=== PATIENT | male | born 1985 | race American Indian/Alaskan Native ===

== ENCOUNTER 2017-06-01 10:10 | Emergency (ER) | payer SELFPAY ==
[2017-06-01 11:03] VITALS: BP 167/89
== END 2017-06-01 12:25 | disposition left against medical advice (07) ==
LOC: ED 10:10
DX: M54.9 Dorsalgia, unspecified (principal); Z53.21 Procedure and treatment not carried out due to patient leaving prior to being seen by health care provider; W19.XXXA Unspecified fall, initial encounter; Y93.89 Activity, other specified; Y99.8 Other external cause status; Y92.89 Other specified places as the place of occurrence of the external cause

== ENCOUNTER 2018-08-13 18:48 | Emergency (ER) | payer OTHER ==
[2018-08-13 19:27] VITALS: BP 144/91
--- NOTE | 2018-08-13 19:28 | Event Note ---
ED Screening Note ED Screening Note: FOLLICULITIS L FAW NODE UP R MIKA- FOR A WHILE PSH HERNIA RX NONE PMH NONE STOPPED SMOKING 2 M AGO This initial assessment/diagnostic orders/clinical plan/treatment(s) is/are subject to change based on patients health status, clinical progression and re- assessment by fellow clinical providers in the ED. Further treatment and workup at subsequent clinical providers discretion. Patient/guardian urged not to elope from the ED as their condition may be serious if not clinically assessed and managed. Initial orders include:
[2018-08-13 19:45] LABS: Hemoglobin 13.9 gm/dl (11.8-15.2); Mean Corpuscular HGB Conc 34 % (32-34); Mean Corpuscular Volume 95 fl (84-94); Platelet Count 204 K/mm3 (140-440); Red Cell Distribution Width 15.3 % (13.2-15.2)
[2018-08-13] MEDS ORDERED: TYLENOL PO ONE (20:10)
[2018-08-13 20:41] LABS: BUN/Creatinine Ratio 12; Blood Urea Nitrogen 16 mg/dL (9-20); Calcium 9.3 mg/dL (8.4-10.2); Hemolysis Index 10
[2018-08-13] MEDS ORDERED: XYLOCAINE 1% MPF 5 mL ONE (21:09)
--- NOTE | 2018-08-13 21:24 | Emergency Department Report ---
Abscess Boil HPI - HPI Chief Complaint: Skin/Abscess/Foreign Body Stated Complaint: JAW SWELLING Time Seen by Provider: 08/13/18 19:25 Duration: 2 Days Location: Head Severity: Moderate History: Yes Pain, No Fever, No Purulent Drainage, No Numbness, No Foreign Body, No Previous History, No Insect Bite HPI: left chin abscess less than 1 cm Home Medications: Previous Rx's Medication Instructions Recorded Last Taken Type cephALEXin [Keflex] 500 mg PO Q8HR 7 Days #21 cap 08/13/18 Unknown Rx traMADol [Ultram] 50 mg PO Q6HR PRN #12 tablet 08/13/18 Unknown Rx Allergies/Adverse Reactions: Allergies Allergy/AdvReac Type Severity Reaction Status Date / Time No Known Allergies Allergy Verified 08/13/18 18:51 ED Review of Systems ROS: Stated complaint: JAW SWELLING Other details as noted in HPI Constitutional: denies: chills, fever Eyes: denies: eye pain, eye discharge, vision change ENT: denies: ear pain, throat pain Respiratory: denies: cough, shortness of breath, wheezing Cardiovascular: denies: chest pain, palpitations Endocrine: no symptoms reported Gastrointestinal: denies: abdominal pain, nausea, diarrhea Genitourinary: denies: urgency, dysuria Musculoskeletal: denies: back pain, joint swelling, arthralgia Skin: lesions (left chin abscess ) Neurological: denies: headache, weakness, paresthesias Psychiatric: denies: anxiety, depression Hematological/Lymphatic: denies: easy bleeding, easy bruising ED Past Medical Hx - Past Medical History Previous Medical History?: No - Surgical History Additional Surgical History: Right inquinal hernia repair - Social History Smoking Status: Former Smoker Substance Use Type: None - Medications Home Medications: Home Medications Medication Instructions Recorded Confirmed Last Taken Type cephALEXin [Keflex] 500 mg PO Q8HR 7 Days #21 cap 08/13/18 Unknown Rx traMADol [Ultram] 50 mg PO Q6HR PRN #12 tablet 08/13/18 Unknown Rx ED Abscess Boil Physical Exam - Exam General: Vital signs noted. No distress. Alert and acting appropriately. Size: 1 cm Exam: Yes Tenderness, Yes Fluctuance, Yes Surrounding Cellulites/Erythema, Yes Lymphangitis, Yes Normal Neurologic Exam, Yes Normal Circulation, No Crepita tion, No Heart Murmur Exam: left chin abscess 1x1 cm mild erythema fluctuant I & D Note - I & D Note I & D Note: left chin abscess site cleaned, anesthesia 1% lidocaine plan, incision with 18g needle x 1 , mild purulent output , wound cleaned sterile dressing applied, all bleeding is controlled pt tolerated procedure with minimal distress. ED Course Vital Signs 08/13/18 19:25 Temperature 98.1 F Pulse Rate 77 Respiratory 18 Rate Blood Pressure 144/91 O2 Sat by Pulse 98 Oximetry Critical care attestation.: If time is entered above; I have spent that time in minutes in the direct care of this critically ill patient, excluding procedure time. ED Medical Decision Making - Lab Data Result diagrams: 08/13/18 19:28 08/13/18 19:28 - Medical Decision Making I&D complete , all bleeding is controlled pt tolerated procedure with minimal distress pt dc'd to home in stable condition. ED Disposition Clinical Impression: Abscess of chin, Folliculitis Disposition: DC-01 TO HOME OR SELFCARE Is pt being admited?: No Does the pt Need Aspirin: No Condition: Stable Instructions: Abscess (ED), Folliculitis (ED) Prescriptions: cephALEXin [Keflex] 500 mg PO Q8HR 7 Days #21 cap traMADol [Ultram] 50 mg PO Q6HR PRN #12 tablet PRN Reason: Pain Referrals: [facility] [Provider Group] - 3-5 Days Forms: Work/School Release Form(ED) Time of Disposition: 21:28
[2018-08-13] MEDS ORDERED: NORCO 5/325 PO ONE (21:25)
== END 2018-08-13 21:55 | disposition home or self-care (01) ==
LOC: ED 18:48
DX: L02.01 Cutaneous abscess of face (principal); L73.9 Follicular disorder, unspecified; Z87.891 Personal history of nicotine dependence
CPT/HCPCS: 36415; 80048; 85027